=== PATIENT | female | born 1970 ===

== ENCOUNTER 2021-02-20 12:13 | Outpatient (CLI) | payer MEDICARE, MEDICAID ==
[2021-02-21 07:27] LABS: SARS-CoV-2 PCR by NAA Not Detected (NotDetected)
== END 2021-02-20 12:14 | disposition home or self-care (01) ==
LOC: LABBT 12:13
PROVIDERS: ATTEND Internal Medicine
DX: Z01.812 Encounter for preprocedural laboratory examination (principal); Z12.11 Encounter for screening for malignant neoplasm of colon; Z20.822 Contact with and (suspected) exposure to COVID-19
CPT/HCPCS: U0003; U0005

== ENCOUNTER 2021-02-23 07:41 | Day surgery (SDC) | payer MEDICARE, MEDICAID ==
[2021-02-17 10:45] VITALS: BMI 30.2
[2021-02-23] MEDS ORDERED: PROPOFOL 200 MG/20 ML VIAL ONE (08:17)
== END 2021-02-23 09:40 | disposition home or self-care (01) ==
LOC: SDC 07:41
PROVIDERS: ATTEND Internal Medicine
PROC: 0DJD8ZZ Inspection of Lower Intestinal Tract, Via Natural or Artificial Opening Endoscopic (ICD-10-PCS; principal; 2021-02-23)
DX: Z12.11 Encounter for screening for malignant neoplasm of colon (principal); F80.2 Mixed receptive-expressive language disorder; Z79.899 Other long term (current) drug therapy
CPT/HCPCS: J2704